=== PATIENT | female | born 1980 | race Caucasian/White ===

== ENCOUNTER 2017-07-20 08:01 | Day surgery (SDC) | payer BC ==
[2017-07-20] VITALS (9 sets, daily range): BP systolic 110–123; BP diastolic 71–86; PULSE 70–109; TEMP 97.9–98.1
[~2017-07-20] VITALS: Ht 157.5 cm; Wt 50.7 kg
[~2017-07-20 08:01] MED LIST: ONE DAILY1 TA1 PO
[2017-07-20] MEDS ORDERED: CIPRO 500MG TA500 MG PO (09:07)
[2017-07-20] MEDS ORDERED: NORCO 325 MG-51 TAB PO (12:09)
== END 2017-07-20 15:00 | disposition home or self-care (01) ==
LOC: SDCO 08:01
DX: N20.0 Calculus of kidney (principal); Z96.0 Presence of urogenital implants; Z90.710 Acquired absence of both cervix and uterus; Z90.49 Acquired absence of other specified parts of digestive tract; Z87.891 Personal history of nicotine dependence; Z80.3 Family history of malignant neoplasm of breast; Z83.3 Family history of diabetes mellitus
CPT/HCPCS: C1769; J0690; J1100; J1170; J1940; J2175; J2270; J2405; J2704; J3010; J7120; Q9967

== ENCOUNTER 2022-02-17 11:41 | Day surgery (SDC) | payer BC ==
[~2022-02-17 11:41] MED LIST changes: +CIPRO 500MG TA500 MG PO; +NORCO 325 MG-51 TAB PO
[2022-02-17] MEDS ORDERED: BUSPAR5 MG PO (12:52)
[2022-02-17] MEDS ORDERED: WELLBUTRIN 75MG75 MG PO (12:53)
[2022-02-17 14:51] LABS: MUCOUS Present (NOT PRESENT); PH 5 (5-8); SQUAMOUS EPITHELIAL None Seen /hpf (0-10); URINE APPEARANCE Clear (CLEAR/HAZY); URINE BACTERIA None Seen /hpf (NONE SEEN); URINE BILIRUBIN Negative (NEGATIVE); URINE BLOOD 2+ (NEGATIVE); URINE COLOR Colorless (YELLOW); URINE GLUCOSE Negative (NEGATIVE); URINE KETONE Negative (NEGATIVE); URINE LEUKOCYTE ESTERASE Negative (NEGATIVE); URINE NITRATE Negative (NEGATIVE); URINE PROTEIN(semi-quant) Negative (NEGATIVE); URINE RBC >50 /hpf (0-2); URINE UROBILINOGEN Negative (NEGATIVE); URINE WBC 0-2 /hpf (0-2)
[2022-02-17 14:54] VITALS: TEMP 97
[2022-02-17 15:05] VITALS: BP 113/69; PULSE 51
--- NOTE | 2022-02-17 15:05 | NUR ---
PATIENT RETURNS TO ROOM 8 PER CART FROM PACU ACCOMPANIED BY ROGERS WINN AND IS AWAKE AND ALERT. IV FLUIDS INFUSING. PATIENT IS ON BEDPAN. STATES THAT SHE IS UNABLE TO URINATE ON BEDPAN. VSS. ASSISTED AMBULATORY TO THE BATHROOM. VOIDS AND RETURNS TO ROOM. GAIT STEADY. DENIES PAIN. DOES WELL DRINKING WATER.
[2022-02-17 15:20] VITALS: BP 107/62; PULSE 48
--- NOTE | 2022-02-17 15:20 | NUR ---
EATING PUDDING AND DRINKING WATER. CONTINUES TO DENY PAIN OR NAUSEA.
[2022-02-17 15:30] LABS: COLLECTION METHOD CLEAN CATCH
[2022-02-17 15:35] VITALS: BP 102/68; PULSE 50
[2022-02-17 15:50] VITALS: BP 115/59; PULSE 55
--- NOTE | 2022-02-17 15:50 | NUR ---
AWAKE AND TALKING ON PHONE. READY FOR DISCHARGE.
--- NOTE | 2022-02-17 15:50 | NUR ---
EATING MORE PUDDING. CONTINUES TO DENY PAIN OR NAUSA. MOTHER IN THE ROOM.
--- NOTE | 2022-02-17 16:00 | NUR ---
IV TO INT. PATIENT DRESSES SELF.
--- NOTE | 2022-02-17 16:10 | NUR ---
AGAIN AMBULATORY TO THE BATHROOM AND GAIT STEADY.
--- NOTE | 2022-02-17 16:15 | NUR ---
DISMISSAL INSTRUCTIONS GIVEN AND VOICES UNDERSTANDING OF THESE. INT DISCONTIINUED AND SITE IS FREE OF REDNESS AND SWELLING.
--- NOTE | 2022-02-17 16:19 | NUR ---
TAKEN TO THE FRONT DOOR PER WC AND PATIENT DISMISSED TO HOME DRIVEN BY MOTHER WITH DISMISSAL INSTRUCTIONS IN HAND.
== END 2022-02-17 16:19 | disposition home or self-care (01) ==
LOC: SDCO 11:41
PROVIDERS: Urology
DX: N30.20 Other chronic cystitis without hematuria (principal); N26.1 Atrophy of kidney (terminal); N89.8 Other specified noninflammatory disorders of vagina; F17.210 Nicotine dependence, cigarettes, uncomplicated; Z87.442 Personal history of urinary calculi
CPT/HCPCS: C1769; J0690; J1100; J2405; J2704; J3010; J7120; Q9967

== ENCOUNTER → 2024-07-23 | Outpatient (CLI) | payer BC ==
[~2024-07-23] MED LIST changes: +BUSPAR5 MG PO; +WELLBUTRIN 75MG75 MG PO
== END ==
LOC: COL.RAD 11:17
DX: N28.89 Other specified disorders of kidney and ureter (principal)
CPT/HCPCS: A9562